=== PATIENT | female | born 1990 | race Caucasian/White ===

== ENCOUNTER 2017-11-02 10:01 | Inpatient (IN) | payer MEDICAID ==
[2017-11-02 11:36] LABS: ADD UMIC YES; UR ASCORBIC ACID NEGATIVE (NEGATIVE); UR BACTERIA FEW /HPF (NONE SEEN); UR BILIRUBIN (Dip) NEGATIVE (NEGATIVE); UR BLOOD (Dip) 2+ mg/dL (NEGATIVE); UR CLARITY CLOUDY (CLEAR); UR COLOR YELLOW (YELLOW); UR GLUCOSE (Dip) NEGATIVE (NEGATIVE); UR KETONES (Dip) NEGATIVE (NEGATIVE); UR LEUKOCYTE ESTERASE (Dip) 3+ Leu/ul (NEGATIVE); UR NITRITE (Dip) NEGATIVE (NEGATIVE); UR RBC 1 /HPF (0-5); UR SPECIFIC GRAVITY (Dip) 1.015 (1.003-1.030); UR SQUAMOUS EPITHELIAL CELL FEW /HPF (FEW); UR TOTAL PROTEIN (Dip) NEGATIVE (NEGATIVE); UR UROBILINOGEN (Dip) NEGATIVE (NEGATIVE); UR WBC 6 /HPF (0-5)
[2017-11-02] MEDS: LACTATED RINGER'S 250 ML IV (12:32)
[2017-11-02 12:36] LABS: ADD MAN DIFF? NO
[2017-11-02 12:45] LABS: BASOPHILS % 0.1 % (0.0-2.0); EOSINOPHILS % 0.1 % (0.0-7.0); HEMATOCRIT 32.3 % (37.0-47.0); HEMOGLOBIN 9.9 g/dl (12.0-16.0); LYMPHOCYTES # 0.8 10^3/ul (0.8-2.9); LYMPHOCYTES % 4.8 % (15.0-51.0); MEAN CORPUSCULAR HEMOGLOBIN 23.1 pg (29.0-33.0); MEAN CORPUSCULAR HGB CONC 30.7 g/dl (32.0-37.0); MEAN CORPUSCULAR VOLUME 75.5 fl (82.0-101.0); MEAN PLATELET VOLUME 11.2 fl (7.4-10.4); MONOCYTE # 1.2 10^3/ul (0.3-0.9); MONOCYTES % 6.7 % (0.0-11.0); NEUTROPHIL # 15.1 10^3/ul (1.6-7.5); NEUTROPHILS % 87.8 % (39.0-77.0); PLATELET COUNT 168 10^3/UL (140-415); RED BLOOD COUNT 4.28 10^6/ul (4.20-5.40); RED CELL DISTRIBUTION WIDTH 16.1 % (11.5-14.5)
[2017-11-02 12:45] LABS: WHITE BLOOD COUNT 17.2 10^3/ul (4.8-10.8)
[2017-11-02] MEDS: CEFTRIAXONE 1 GM/50 ML (PMX) 50 ML IVPB (13:34)
[2017-11-02] MEDS: SOD CHLORIDE 0.9% 1,000 ML IV ×2 (13:34→22:36)
[2017-11-02] MEDS: ACETAMINOPHEN 500 MG TAB PO ×2 (17:19→22:33)
[2017-11-03] MEDS: SOD CHLORIDE 0.9% 1,000 ML IV (06:18)
[2017-11-03] MEDS: CEFTRIAXONE 500 MG in SOD CHLORIDE 0.9% 50 ML IVPB (12:45)
[2017-11-03] MEDS: ACETAMINOPHEN 500 MG TAB PO (16:22)
[2017-11-04] MEDS: ACETAMINOPHEN 500 MG TAB PO (06:20)
[2017-11-04 10:17] LABS: ADD MAN DIFF? NO
[2017-11-04 10:23] LABS: BASOPHILS % 0.3 % (0.0-2.0); EOSINOPHILS # 0.1 10^3/ul (0.0-0.5); EOSINOPHILS % 1.7 % (0.0-7.0); HEMATOCRIT 33.1 % (37.0-47.0); HEMOGLOBIN 9.8 g/dl (12.0-16.0); LYMPHOCYTES # 1.2 10^3/ul (0.8-2.9); LYMPHOCYTES % 18.3 % (15.0-51.0); MEAN CORPUSCULAR HEMOGLOBIN 22.8 pg (29.0-33.0); MEAN CORPUSCULAR HGB CONC 29.6 g/dl (32.0-37.0); MEAN PLATELET VOLUME 10.9 fl (7.4-10.4); MONOCYTE # 0.5 10^3/ul (0.3-0.9); MONOCYTES % 8.2 % (0.0-11.0); NEUTROPHIL # 4.7 10^3/ul (1.6-7.5); PLATELET COUNT 175 10^3/UL (140-415); RED CELL DISTRIBUTION WIDTH 16.6 % (11.5-14.5)
[2017-11-04 10:23] LABS: WHITE BLOOD COUNT 6.6 10^3/ul (4.8-10.8)
[2017-11-04] MEDS: CEFTRIAXONE 500 MG in SOD CHLORIDE 0.9% 50 ML IVPB (11:31)
[2017-11-04] MEDS ORDERED: SOD CHLORIDE 0.9% 1,000 ML IV (12:30)
== END 2017-11-04 11:40 | disposition home or self-care (01) | DRG 781 ==
LOC: OBT 10:01 → L-D 10:03 → OBT 16:56 → L-D 16:15
DX: O23.03 Infections of kidney in pregnancy, third trimester (principal); Z3A.37 37 weeks gestation of pregnancy
CPT/HCPCS: 36415; 76818; 81001; 85025; 87086; 96360; 96361

== ENCOUNTER 2017-11-21 11:39 | Inpatient (IN) | payer MEDICAID ==
[2017-11-21] MEDS ORDERED: LIDOCAINE 1% (MPF) 30 ML INJ INJ (13:30)
[2017-11-21] MEDS ORDERED: BUTORPHANOL 2 MG INJ IV (13:30)
[2017-11-21] MEDS: LACTATED RINGER'S 1,000 ML IV ×2 (14:00→17:53)
[2017-11-21] MEDS: AMPICILLIN 2 GM/NS (PMX) 100 ML IV (14:02)
[2017-11-21 14:09] LABS: ADD MAN DIFF? NO
[2017-11-21 14:27] LABS: ABNORMAL IP MESSAGE 1; BASOPHILS % 0.2 % (0.0-2.0); EOSINOPHILS # 0.1 10^3/ul (0.0-0.5); HEMATOCRIT 34.3 % (37.0-47.0); HEMOGLOBIN 10.1 g/dl (12.0-16.0); LYMPHOCYTES # 1.6 10^3/ul (0.8-2.9); LYMPHOCYTES % 18.2 % (15.0-51.0); MEAN CORPUSCULAR HEMOGLOBIN 21.9 pg (29.0-33.0); MEAN CORPUSCULAR HGB CONC 29.4 g/dl (32.0-37.0); MEAN CORPUSCULAR VOLUME 74.4 fl (82.0-101.0); MEAN PLATELET VOLUME 11.7 fl (7.4-10.4); MONOCYTE # 0.5 10^3/ul (0.3-0.9); MONOCYTES % 5.8 % (0.0-11.0); NEUTROPHIL # 6.4 10^3/ul (1.6-7.5); NEUTROPHILS % 74.5 % (39.0-77.0); PLATELET COUNT 210 10^3/UL (140-415); RED BLOOD COUNT 4.61 10^6/ul (4.20-5.40); RED CELL DISTRIBUTION WIDTH 16.9 % (11.5-14.5)
[2017-11-21 14:27] LABS: WHITE BLOOD COUNT 8.6 10^3/ul (4.8-10.8)
[2017-11-21 14:28] LABS: POSITIVE DIFF @See below
[2017-11-21 14:44] LABS: INR 0.99; PROTIME 13.2 Sec (11.9-14.9)
[2017-11-21 14:45] LABS: PARTIAL THROMBOPLASTIN TIME 30.2 Sec (25.0-35.0)
[2017-11-21 15:26] LABS: HEPATITIS B SURFACE ANTIGEN NEGATIVE (NEGATIVE)
[2017-11-21 16:43] LABS: RAPID PLASMA REAGIN NONREACTIVE (NR)
[2017-11-21] MEDS: AMPICILLIN 1 GM/NS (PMX) 50 ML IV ×2 (17:48→20:49)
[2017-11-21] MEDS ORDERED: FENTAnyl 2MCG/ML-ROPIV 0.2% 100 ML (18:23)
[2017-11-21] MEDS ORDERED: KETOROLAC 30 MG INJ IV (19:00)
[2017-11-21] MEDS ORDERED: ZOLPIDEM 5 MG TAB PO ×2 (19:00→23:30)
[2017-11-21] MEDS ORDERED: HYDROmorphONE 0.5 MG/0.5 ML SYG IV ×2 (19:00)
[2017-11-21] MEDS ORDERED: NALOXONE (0.4 MG/ML) INJ IV (19:00)
[2017-11-21] MEDS ORDERED: ONDANSETRON 4 MG INJ IV ×2 (19:00→23:30)
[2017-11-21] MEDS ORDERED: DIPHENHYDRAMINE 50 MG INJ IV ×2 (19:00→23:30)
[2017-11-21] MEDS: FENTAnyl 2MCG/ML-ROPIV 0.2% 100 ML BAG EPI (19:13)
[2017-11-21] MEDS: OXYTOCIN 30 UNITS/LR 500 ML IV ×2 (22:29→22:55)
[2017-11-21] MEDS ORDERED: METHYLERGONOVINE 0.2 MG INJ (22:32)
[2017-11-21] MEDS ORDERED: MISOPROSTOL 200 MCG TAB (22:33)
[2017-11-21] MEDS: METHYLERGONOVINE 0.2 MG INJ IM (22:42)
[2017-11-21] MEDS: MISOPROSTOL 200 MCG TAB PR (22:43)
[2017-11-21] MEDS ORDERED: CARBOPROST 250 MCG INJ IM ×2 (23:00→23:30)
[2017-11-21] MEDS ORDERED: OXYTOCIN 30 UNITS/LR 500 ML IV ×2 (23:00→23:30)
[2017-11-21] MEDS ORDERED: DEXTROSE 5%-LR 1,000 ML IV (23:07)
[2017-11-21] MEDS: IBUPROFEN 600 MG TAB PO (23:24)
[2017-11-21] MEDS ORDERED: ACETAMINOPHEN 325 MG TAB PO (23:30)
[2017-11-21] MEDS ORDERED: MISOPROSTOL 200 MCG TAB PR (23:30)
[2017-11-21] MEDS ORDERED: WITCH HAZEL/GLYCERIN PAD PR (23:30)
[2017-11-21] MEDS ORDERED: SENNA/DOCUSATE NA (8.6MG/50MG) TAB PO (23:30)
[2017-11-21] MEDS ORDERED: METHYLERGONOVINE 0.2 MG INJ IM (23:30)
[2017-11-21] MEDS ORDERED: DIBUCAINE 1% 30 GM OINT PR (23:30)
[2017-11-21] MEDS ORDERED: OXYCODONE/ASPIRIN (4.88/325) TAB PO (23:30)
[2017-11-22] MEDS: LACTATED RINGER'S 1,000 ML IV* ×4 (03:05→23:07)
[2017-11-22] MEDS: BENZOCAINE 20% 56 ML SPRAY TOP (05:01)
[2017-11-22] MEDS: LANOLIN 7 GM TUBE TOP (05:01)
[2017-11-22] MEDS: IBUPROFEN 600 MG TAB PO ×4 (05:46→18:00)
[2017-11-22 11:01] LABS: ADD MAN DIFF? NO
[2017-11-22 11:38] LABS: ABNORMAL IP MESSAGE 1; BASOPHILS % 0.1 % (0.0-2.0); EOSINOPHILS # 0.1 10^3/ul (0.0-0.5); EOSINOPHILS % 0.5 % (0.0-7.0); HEMOGLOBIN 8.2 g/dl (12.0-16.0); LYMPHOCYTES # 1.4 10^3/ul (0.8-2.9); LYMPHOCYTES % 14.8 % (15.0-51.0); MEAN CORPUSCULAR HEMOGLOBIN 22.8 pg (29.0-33.0); MEAN CORPUSCULAR HGB CONC 30.4 g/dl (32.0-37.0); MEAN PLATELET VOLUME 12.3 fl (7.4-10.4); MONOCYTE # 0.8 10^3/ul (0.3-0.9); MONOCYTES % 8.2 % (0.0-11.0); NEUTROPHIL # 7.3 10^3/ul (1.6-7.5); NEUTROPHILS % 76.1 % (39.0-77.0); RED CELL DISTRIBUTION WIDTH 16.6 % (11.5-14.5)
[2017-11-22 11:38] LABS: WHITE BLOOD COUNT 9.6 10^3/ul (4.8-10.8)
[2017-11-22 11:41] LABS: PLATELET COUNT 163 10^3/UL (140-415); POSITIVE DIFF @See below
[2017-11-22] MEDS: FERROUS SULFATE (EC) 325 MG TAB PO ×2 (12:14→21:35)
[2017-11-23] MEDS: IBUPROFEN 600 MG TAB PO ×3 (01:00→12:10)
[2017-11-23] MEDS: LACTATED RINGER'S 1,000 ML IV* (08:12)
[2017-11-23] MEDS: FERROUS SULFATE (EC) 325 MG TAB PO (08:31)
[2017-11-23] MEDS: DIPHTH/TET/ACEL PERTUSS (ADULT) 0.5 ML VIAL IM* (08:32)
[2017-11-23] MEDS: MEASLES,MUMPS,RUBELLA VACCINE INJ SC* (08:33)
== END 2017-11-23 15:25 | disposition home or self-care (01) | DRG 775 ==
LOC: OBT 11:39 → PP1 11-22 00:55 → L-D 11:40 → OBT 12:40 → L-D 12:40
PROVIDERS: Obstetrics & Gynecology
PROC: 10E0XZZ Delivery of Products of Conception, External Approach (ICD-10-PCS; principal; 2017-11-21)
DX: O48.0 Post-term pregnancy (principal); O99.824 Streptococcus B carrier state complicating childbirth; Z3A.40 40 weeks gestation of pregnancy; Z37.0 Single live birth
CPT/HCPCS: 62319; 85025; 85610; 85730; 86592; 86900; 86901; 87340; 88305